=== PATIENT | female | born 1985 | race African-American/Black ===

== ENCOUNTER 2020-08-24 21:31 | Observation (INO) ==
[2020-08-24] MEDS ORDERED: ALUM/MAG/SIMETH/LIDO VISC 1:1 30 ML BOTTLE PO STA (21:51)
[2020-08-24] MEDS ORDERED: ASPIRIN 325 MG TABLET PO STA (21:51)
[2020-08-24] MEDS ORDERED: hydrALAZINE 20 MG/1 ML VIAL IV STA ×2 (21:51→23:57)
[2020-08-24] MEDS ORDERED: NITROGLYCERIN 2% OINT 1 INCH/GM PACK TOP STA (21:51)
[2020-08-24] MEDS ORDERED: ONDANSETRON 4 MG/2 ML VIAL IV STA (21:51)
[2020-08-24] MEDS ORDERED: MORPHINE 4 MG/1 ML VIAL IV STA (21:51)
[2020-08-24 22:10] LABS: Basophils % 0.6 % (0.0-0.8); Eosinophils # 0.1 10*3/uL (0.0-0.87); Eosinophils % 1.7 % (0.00-10.9); Hematocrit 36.1 VOL% (35.7-47.0); Hemoglobin 11.7 GM/DL (12.0-16.0); Immature Granulocytes % 0.3 %; Immature Granulocytes Absolute 0.02 #; Lymphocytes # 2.4 10*3/uL (1.4-4.0); Lymphocytes % 33.5 % (21.3-54.2); Mean Corpuscular HGB Conc 32.4 GM/DL (32-36); Mean Corpuscular Volume 86.8 FL (87-102); Mean Platelet Volume 10.1 FL (9.6-12.0); Monocytes % 9.4 % (1.7-12.7); Neutrophils % 54.5 % (38.7-73.9); Platelet Count 273 T/CUMM (130-400); Red Blood Count 4.16 MC/CUMM (3.8-5.5)
[2020-08-24 22:22] LABS: PT Patient Result 11.4 SECS (10.5-12.0)
[2020-08-24 22:38] LABS: Bilirubin,Total 0.5 MG/DL (0.2-1.0); Calcium 8.2 MG/DL (8.5-10.1); Osmolality,Calculated 274.5 MOS/KG (273-304); Total Protein 7.2 G/DL (6.4-8.2)
[2020-08-24 22:46] LABS: Bilirubin,Urine Negative (Negative); Blood, Urine Small mg/dL (Negative); Glucose,Urine (UA) Negative (Negative); Hyaline Casts,Urine 1 /LPF (0-3); Ketones,Urine Negative (Negative); Mucus,Urine Occasional /LPF (Occasional); Nitrite,Urine Negative (Negative); Protein,Urine Negative; RBC,Urine 7 /HPF (0-4); Squamous Epithelial Cell,Urine Occasional /HPF (0-10); Urine Appearance CLEAR (Clear); Urine Color Yellow (Yellow); Urine Specific Gravity 1.009 (1.001-1.035); Urine Urobilinogen < 2.0 EU/DL (0.2-1.0)
[2020-08-24 22:49] LABS: Barbiturates Screen,Urine Negative (Negative); Benzodiazepines Screen,Urine Negative (Negative); Cannabinoid Screen,Urine Negative (Negative); Opiate Screen,Urine Negative (Negative); Phencyclidine Screen,Urine Negative (Negative)
[2020-08-24 22:54] LABS: Potassium 2.4 MMOL/L (3.5-5.1)
[2020-08-24] MEDS ORDERED: POTASSIUM CHLORIDE RIDER 20 MEQ/100 ML PREMIX IV STA (22:56)
[2020-08-24] MEDS ORDERED: LABETALOL 20 MG/4 ML SYRINGE IV STA (22:59)
[2020-08-24] MEDS: POTASSIUM CHLORIDE RIDER 10 MEQ/100 ML PREMIX IV SCH (23:15)
[2020-08-25] MEDS: POTASSIUM CHLORIDE RIDER 10 MEQ/100 ML PREMIX IV SCH (00:12)
[2020-08-25] MEDS ORDERED: lisinopriL 10 MG TABLET PO STA (00:24)
[2020-08-25] MEDS ORDERED: amLODIPine 5 MG TABLET PO STA (00:24)
[2020-08-25] MEDS ORDERED: guaiFENesin/DM ER 600-30 MG TABLET PO PRN (00:53)
[2020-08-25] MEDS ORDERED: GLUCAGON 1 MG VIAL IM PRN (00:53)
[2020-08-25] MEDS ORDERED: diphenhydrAMINE CAP 25 MG CAPSULE PO PRN (00:53)
[2020-08-25] MEDS ORDERED: DOCUSATE SODIUM 100 MG CAPSULE PO PRN (00:53)
[2020-08-25] MEDS ORDERED: NICOTINE 21 MG/24 HR PATCH TRANSDERM PRN (00:53)
[2020-08-25] MEDS ORDERED: MORPHINE 4 MG/1 ML VIAL IV PRN (00:53)
[2020-08-25] MEDS ORDERED: hydrALAZINE 20 MG/1 ML VIAL IV PRN (00:53)
[2020-08-25] MEDS ORDERED: DEXTROSE 50% 25 GM/50 ML VIAL IV PRN (00:53)
[2020-08-25] MEDS ORDERED: POTASSIUM CHLORIDE 20 MEQ TABLET PO STA (00:56)
[2020-08-25] MEDS ORDERED: METOPROLOL TARTRATE 25 MG TABLET PO STA (00:57)
[2020-08-25] MEDS ORDERED: POTASSIUM CHLORIDE RIDER 10 MEQ/100 ML PREMIX IV PRN (00:57)
[2020-08-25] MEDS: ACETAMINOPHEN 325 MG TABLET PO PRN ×3 (03:12→14:05)
[2020-08-25 06:46] LABS: Basophils % 0.4 % (0.0-0.8); Eosinophils # 0.1 10*3/uL (0.0-0.87); Hematocrit 35.9 VOL% (35.7-47.0); Hemoglobin 11.8 GM/DL (12.0-16.0); Immature Granulocytes % 0.3 %; Immature Granulocytes Absolute 0.02 #; Lymphocytes # 1.8 10*3/uL (1.4-4.0); Lymphocytes % 23.2 % (21.3-54.2); Mean Corpuscular HGB Conc 32.9 GM/DL (32-36); Mean Corpuscular Volume 86.9 FL (87-102); Monocytes % 7.7 % (1.7-12.7); Neutrophils % 67.4 % (38.7-73.9); Platelet Count 258 T/CUMM (130-400); Red Blood Count 4.13 MC/CUMM (3.8-5.5); Red Cell Distribution Width 12.9 % (9.3-17.3); White Blood Count 7.8 T/CUMM (4-12)
[2020-08-25 07:18] LABS: Calcium 8.5 MG/DL (8.5-10.1); Osmolality,Calculated 279.3 MOS/KG (273-304); Potassium 2.8 MMOL/L (3.5-5.1)
[2020-08-25] MEDS ORDERED: ENOXAPARIN 40 MG/0.4 ML SYRINGE SUBCUT SCH (09:00)
[2020-08-25] MEDS ORDERED: POTASSIUM CHLORIDE 20 MEQ TABLET PO SCH (09:00)
[2020-08-25] MEDS ORDERED: PANTOPRAZOLE 40 MG TABLET PO SCH (09:00)
[2020-08-25] MEDS ORDERED: METOPROLOL TARTRATE 25 MG TABLET PO SCH (09:00)
[2020-08-25 15:45] VITALS: BP 158/96
== END 2020-08-25 17:08 | disposition home or self-care (01) ==
LOC: N.EDINP 21:31 → N.ED 21:31 → N.EDINP 08-25 02:10 → N.TELES 08-25 02:29
PROVIDERS: ADMIT Internal Medicine; ATTEND Internal Medicine